=== PATIENT | female | born 1965 | race Caucasian/White ===

== ENCOUNTER → 2020-04-03 09:32 | Outpatient (BNVA) | payer OTHER, SELFPAY | PROVIDERS: Visit Provider Nurse Practitioner | DX: Z00.00 Encounter for general adult medical examination without abnormal findings (principal) | CPT/HCPCS: 80053; 80061; 84443; 85025 ==

== ENCOUNTER 2020-05-06 12:35 | Outpatient (CLI) | payer OTHER, SELFPAY ==
--- NOTE | 2020-05-06 13:00 | MM_ITS ---
WS: [id number] BILATERAL DIGITAL SCREENING MAMMOGRAPHY WITH CAD CLINICAL INFORMATION: breast screen HISTORY: Screening mammogram. No current complaints. COMPARISON: TECHNIQUE: Bilateral CC and MLO views. FINDINGS: Bilateral breast implants. The breasts are composed of heterogeneous fibroglandular density tissue, which can limit the detectio n of small underlying mass lesions. No suspicious mass, asymmetry, calcifications, or architectural d istortion. No evidence of malignancy. Vascular calcification MM/[place] [id number] IMPRESSION: BI-RADS: 2-Benign FOLLOW UP: 1 Year Follow-up Recommend return to annual screening mammography.
== END 2020-05-06 12:36 ==
PROVIDERS: PCP Nurse Practitioner; Visit Provider Nurse Practitioner
DX: L82.1 Other seborrheic keratosis (principal); L81.8 Other specified disorders of pigmentation; D18.01 Hemangioma of skin and subcutaneous tissue; S30.861A Insect bite (nonvenomous) of abdominal wall, initial encounter; W57.XXXA Bitten or stung by nonvenomous insect and other nonvenomous arthropods, initial encounter; X58.XXXA Exposure to other specified factors, initial encounter; F17.210 Nicotine dependence, cigarettes, uncomplicated; Z12.83 Encounter for screening for malignant neoplasm of skin
CPT/HCPCS: 77067; 99203; 99204

== ENCOUNTER → 2021-04-02 08:57 | Outpatient (BNVA) | payer OTHER, SELFPAY | PROVIDERS: PCP Nurse Practitioner; Visit Provider Nurse Practitioner | DX: Z00.00 Encounter for general adult medical examination without abnormal findings (principal); Z98.890 Other specified postprocedural states; Z86.010 Personal history of colon polyps; Z12.39 Encounter for other screening for malignant neoplasm of breast | CPT/HCPCS: 80053; 80061; 81000; 85025 ==

== ENCOUNTER 2021-05-14 09:00 | Outpatient (CLI) | payer OTHER, SELFPAY ==
--- NOTE | 2021-05-14 09:30 | MM_ITS ---
WS: [id number] BILATERAL DIGITAL SCREENING MAMMOGRAPHY WITH CAD CLINICAL INFORMATION: Z12.39 - Encounter for other screening for malignant neop... HISTORY: Screening mammogram. No current complaints. COMPARISON: May 06, 2020 TECHNIQUE: Bilateral CC and MLO views. FINDINGS: Bilateral breast implants appear Mammographically intact. The breasts are composed of heterogeneous fibroglandular density tissue, which can limit the detectio n of small underlying mass lesions. Clustered punctate calcifications outer left breast are stable. N o suspicious mass, asymmetry, calcifications, or architectural distortion. No evidence of malignancy. MM/[place] [id number] IMPRESSION: BI-RADS: 2-Benign FOLLOW UP: 1 Year Follow-up Recommend return to annual screening mammography.
== END 2021-05-14 09:01 | disposition home or self-care (01) ==
LOC: RADSHAW 09:03
PROVIDERS: PCP Nurse Practitioner; Visit Provider Nurse Practitioner
DX: Z12.31 Encounter for screening mammogram for malignant neoplasm of breast (principal)
CPT/HCPCS: 77067

== ENCOUNTER → 2022-08-16 14:29 | Outpatient (BNVA) | payer OTHER, SELFPAY | PROVIDERS: PCP Nurse Practitioner; Visit Provider Nurse Practitioner | DX: R05.9 Cough, unspecified (principal) | CPT/HCPCS: 71046; 80061 ==

== ENCOUNTER 2022-09-12 14:26 | Outpatient (CLI) | payer OTHER, SELFPAY ==
--- NOTE | 2022-09-12 14:38 | XR_ITS ---
WS: [id number] DEXA (DUAL ENERGY X-RAY ABSORPTIOMETRY) Bone mineral density was performed using a [employer] machine. HISTORY: Z78.0 - Asymptomatic menopausal state COMPARISON: None available. Lumbar spine BMD (L1-L4): 0.838 g/cm2 T score: -2.9 Z score: -1.6 Total hip BMD: Left: 0.832 g/cm2. T score: -1.4 Z score: -0.4 Right: 0.840 g/cm2. T score: -1.3 Z score: -0.3 10 year probability of a major osteoporotic fracture is 8.3%. XR/XR DEXA axial skeleton* [id number] IMPRESSION: OSTEOPOROSIS based upon the WHO classification for females.
--- NOTE | 2022-09-12 14:38 | MM_ITS ---
WS: [id number] BILATERAL 3D TOMOSYNTHESIS DIGITAL SCREENING MAMMOGRAPHY WITH CAD CLINICAL INFORMATION: Z12.39 - Encounter for other screening for malignant neop... HISTORY: Screening mammogram. No current complaints. COMPARISON: 2020 TECHNIQUE: Bilateral CC and MLO views. FINDINGS: Bilateral breast implants appear intact. The breasts are composed of heterogeneous fibroglandular density tissue, which can limit the detectio n of small underlying mass lesions. Stable clustered punctate calcifications outer LEFT breast. No kulkarni spicious mass, asymmetry, calcifications, or architectural distortion. No evidence of malignancy. MM/[place] [id number] IMPRESSION: BI-RADS: 2-Benign FOLLOW UP: 1 Year Follow-up Recommend return to annual screening mammography.
== END 2022-09-12 14:27 | disposition home or self-care (01) ==
LOC: RAD 14:29
PROVIDERS: PCP Nurse Practitioner; Visit Provider Nurse Practitioner
DX: Z12.31 Encounter for screening mammogram for malignant neoplasm of breast (principal); Z78.0 Asymptomatic menopausal state; M81.0 Age-related osteoporosis without current pathological fracture
CPT/HCPCS: 77063; 77067; 77080

== ENCOUNTER → 2023-04-20 10:09 | Outpatient (BNVA) | payer OTHER, SELFPAY | PROVIDERS: PCP Nurse Practitioner; Visit Provider Nurse Practitioner | DX: E55.9 Vitamin D deficiency, unspecified (principal) | CPT/HCPCS: 80053; 82306; 82607; 84443; 85025 ==

== ENCOUNTER → 2023-05-02 13:51 | Outpatient (BNVA) | payer OTHER, SELFPAY | PROVIDERS: PCP Nurse Practitioner; Visit Provider Dermatology | DX: D23.72 Other benign neoplasm of skin of left lower limb, including hip (principal) | CPT/HCPCS: 99213 ==

== ENCOUNTER 2023-09-15 09:26 | Outpatient (CLI) | payer OTHER, SELFPAY ==
--- NOTE | 2023-09-15 09:28 | MM_ITS ---
WS: [id number] BILATERAL SCREENING DIGITAL BREAST MAMMOGRAPHY WITH KASHIF DISPLACEMENT VIEWS. CAD PERFORMED. HISTORY: SCREENING COMPARISON: 09/12/2022 and 05/14/2021 Bilateral craniocaudal and mediolateral oblique views are performed with tomosynthesis and SM. Kashif displacement views in CC and MLO projection also performed. Breasts composition: The breasts are heterogeneously dense, which may obscure small masses. Implants are intact. No suspicious mass or calcification. IMPRESSION: MM/[place] [id number] BI-RADS: 2-Benign FOLLOW-UP: 1 Year Follow-up
== END 2023-09-15 09:27 | disposition home or self-care (01) ==
LOC: RAD 09:26
PROVIDERS: PCP Nurse Practitioner; Visit Provider Nurse Practitioner
DX: Z12.31 Encounter for screening mammogram for malignant neoplasm of breast (principal)
CPT/HCPCS: 77063; 77067

== ENCOUNTER → 2024-05-13 10:06 | Outpatient (BNVA) | payer BC, SELFPAY | PROVIDERS: PCP Nurse Practitioner; Visit Provider Nurse Practitioner | DX: M25.512 Pain in left shoulder (principal); J45.909 Unspecified asthma, uncomplicated; F41.8 Other specified anxiety disorders; M81.0 Age-related osteoporosis without current pathological fracture; J45.20 Mild intermittent asthma, uncomplicated; Z13.6 Encounter for screening for cardiovascular disorders | CPT/HCPCS: 73030 ==

== ENCOUNTER 2024-05-27 06:00 | Outpatient (RCR) | payer BC, SELFPAY | END 2024-06-08 23:59 | disposition home or self-care (01) | LOC: APT 06:00 | PROVIDERS: PCP Nurse Practitioner; Visit Provider Nurse Practitioner | DX: M25.512 Pain in left shoulder (principal) | CPT/HCPCS: 97110; 97140; 97161; 97530 ==

== ENCOUNTER → 2024-05-29 10:10 | Outpatient (BNVA) | payer BC, SELFPAY | PROVIDERS: PCP Nurse Practitioner; Visit Provider Nurse Practitioner | DX: Z13.6 Encounter for screening for cardiovascular disorders (principal) | CPT/HCPCS: 80053; 80061; 82607; 85025 ==

== ENCOUNTER 2024-06-09 06:00 | Outpatient (RCR) | payer BC, SELFPAY | END 2024-07-08 23:59 | disposition home or self-care (01) | LOC: APT 06:00 | PROVIDERS: PCP Nurse Practitioner; Visit Provider Nurse Practitioner | DX: M25.512 Pain in left shoulder (principal) | CPT/HCPCS: 97110; 97112; 97530 ==

== ENCOUNTER 2024-07-09 06:00 | Outpatient (RCR) | payer BC, SELFPAY | END 2024-08-08 23:59 | disposition home or self-care (01) | LOC: APT 06:00 | PROVIDERS: PCP Nurse Practitioner; Visit Provider Nurse Practitioner | DX: M25.512 Pain in left shoulder (principal) | CPT/HCPCS: 97110; 97112; 97140; 97530 ==

== ENCOUNTER 2024-09-20 09:33 | Outpatient (CLI) | payer BC, SELFPAY ==
--- NOTE | 2024-09-20 09:34 | MM_ITS ---
WS: [id number] BILATERAL SCREENING DIGITAL BREAST MAMMOGRAPHY WITH KASHIF DISPLACEMENT VIEWS. CAD PERFORMED. HISTORY: SCREENING COMPARISON: 09/15/2023, 09/12/2022 Bilateral craniocaudal and mediolateral oblique views are performed with tomosynthesis and SM. Kashif displacement views in CC and MLO projection also performed. Breasts composition: The breasts are heterogeneously dense, which may obscure small masses. Implants are prepectoral. Asymmetric increased density within the LEFT breast appears similar to 2020. No interval change or distortion. No suspicious grouping of calcifications. MM/MM scr tomosynthesis [id number] IMPRESSION: BI-RADS: 2 - Benign FOLLOW-UP: 1 Year Follow-up
== END 2024-09-20 09:34 | disposition home or self-care (01) ==
LOC: RAD 09:33
PROVIDERS: PCP Nurse Practitioner; Visit Provider Nurse Practitioner
DX: Z12.31 Encounter for screening mammogram for malignant neoplasm of breast (principal); R92.333 Mammographic heterogeneous density, bilateral breasts; Z98.82 Breast implant status; N64.89 Other specified disorders of breast
CPT/HCPCS: 77063; 77067

== ENCOUNTER → 2024-10-28 10:19 | Outpatient (BNVA) | payer BC, SELFPAY | PROVIDERS: PCP Nurse Practitioner; Visit Provider Nurse Practitioner | DX: E78.2 Mixed hyperlipidemia (principal); E55.9 Vitamin D deficiency, unspecified | CPT/HCPCS: 80053; 80061; 82306; 82607 ==

== ENCOUNTER 2025-01-08 09:07 | Emergency (ER) | payer BC, SELFPAY ==
[2025-01-08 09:19] VITALS: BP 149/88; PULSE 79; RESP 18; TEMP 36.5; O2SAT 100
--- NOTE | 2025-01-08 09:28 | XRR_ITS ---
PROCEDURE INFORMATION: Exam: XR Lumbosacral Spine Exam date and time: 01/08/2025 8:35 AM Age: 59 years old Clinical indication: Injury or trauma; Fall; Blunt trauma (contusions or hematomas); Additional info: Fall, low back pain TECHNIQUE: Imaging protocol: Radiologic exam of the lumbosacral spine. Views: 2 or 3 views. COMPARISON: CR XR chest 2V* [id number] 08/16/2022 2:30 PM FINDINGS: Bones/joints: There is normal anatomic alignment of the lumbosacral spine. There is a mild compression fracture deformity through the superior endplate of L1. The L1 compression fracture deformity was not present on the two-view chest from August 16, 2022. Mild chronic degenerative changes in the lower lumbar spine. Soft tissues: Unremarkable. XR/XR lumbar spine 2-3V* [id number] IMPRESSION: Mild compression fracture deformity through the superior endplate of L1.
--- NOTE | 2025-01-08 10:01 | CT_ITS ---
WS: [id number] CT ABDOMEN AND PELVIS WITH CONTRAST HISTORY: fall TECHNIQUE: Imaging performed of the abdomen and pelvis with IV contrast. Single phase imaging of the abdomen. Coronal and sagittal reformats are submitted. All CT scans at [facility] use at least one of these dose optimization techniques: automated exposure control; mA and/or kV adjustment per patient size (includes targeted exams where dose is matched to clinical indication); or iterative reconstruction. IV CONTRAST: Omnipaque 350; 100 mL IV. Oral contrast: No DLP: 387.76 mGy.cm COMPARISON: None available. Lower thorax: Lung bases are clear. Heart is normal size. No hiatal hernia. Liver/biliary system: Normal size with no intrahepatic dilatation. Gallbladder: Normal. No gallstones or wall thickening. No pericholecystic fluid. Pancreas: Normal size pancreas and pancreatic duct. No adjacent inflammation. Spleen: Normal size spleen. No mass or infarct. Adrenal glands: Normal. Right kidney: Normal. Left kidney: No obstruction. Lower pole cyst 2.8 x 2.5 cm. Aorta: Mild atherosclerosis with no aneurysm. Lymphadenopathy: None. Free fluid: None. GI tract: Nondistended stomach. No small bowel obstruction. Mild diffuse constipation. No colitis. Abdominal wall: Tiny fat-containing umbilical hernia. Pelvis: Urinary bladder is slightly overdistended. No free fluid in the pelvis. Prior hysterectomy. Bones: Acute L1 compression fracture by 10% with posterior retropulsion of the superior endplate by 3.[address] the fracture does not appear to extend into the posterior elements. Fracture does extend through the T12 spinous process towards the lamina. No definite laminar involvement. Fracture is best seen on the sagittal reformats. This fracture is difficult to see on the axial imaging. This is a subtle finding but the foramina bilaterally at T12-L1 are slightly greater in size as compared to the adjacent foramen above and below. Possibility for ligamentous injury especially on the RIGHT should be considered as there does appear to be slight subluxation of the RIGHT inferior articular facet with respect to the L1 superior articular facet. Nondisplaced fracture RIGHT L1 transverse process. No sacral fracture. No hip fracture. CT/CT abdomen pelvis w con* [id number] IMPRESSION: 1. No acute abdominal or pelvic abnormalities are identified. No visceral orga n injury. 2. Acute L1 compression fracture by 10% with posterior retropulsion of the sup erior endplate by 3.4 mm with mild encroachment upon the ventral thecal sac. 3. T12 spinous process fracture. 4. Nondisplaced RIGHT L1 transverse process fracture. 5. Although very subtle finding the T12-L1 foramina are slightly greater in si ze as compared to the foramina above and below this level. Very slight subluxat ion of the RIGHT T12-L1 articular facets. Recommend follow-up MRI lumbar spine to evaluate possible ligamentous injury. 6. Mildly distended bladder. With the fracture at L1 evaluate for possible cau da equina injury.
--- NOTE | 2025-01-08 10:01 | XR_ITS ---
WS: [id number] XR chest 1V portable [id number] REASON FOR EXAM: fall FINDINGS: Chest is relatively unchanged compared to 08/16/2022. Moderate tortuosity and ectasia of the thoracic aorta. Normal heart size. Calcified granulomatous disease bilaterally. No significant abnormality of the bony thorax. XR/XR chest 1V portable [id number] IMPRESSION: Stable chest without acute abnormality.
--- NOTE | 2025-01-08 10:11 | W.ED.FALL ---
HPI - Fall General: Chief Complaint: Fall Stated Complaint: fall, back pain Time Seen by Provider: 01/08/25 09:54 Source: patient Mode of arrival: ambulatory Limitations: no limitations History of Present Illness: 59-year-old female states she had tripped in her yard this morning states she fell backwards on the ground and hit her back states been having left flank pain back pain that wraps around her abdomen. States she has had some shooting pains in her left lower ribs as well she denies any hip pain denies hitting her head denies any neck pain Associated symptoms-after fall: Reports abdominal pain; Denies chest pain, headache(s) or neck pain Related Data Home Medications ?Medication ?Instructions ?Recorded ?Confirmed cholecalciferol (vitamin D3) 50 50 mcg PO DAILY 04/13/22 01/08/25 mcg (2,000 unit) capsule turmeric 400 mg capsule 400 mg PO DAILY 05/13/24 01/08/25 famotidine 20 mg tablet (Pepcid) 20 mg PO DAILY 10/28/24 01/08/25 bupropion HCl 150 mg tablet,12 hr 150 mg PO DAILY 01/08/25 01/08/25 sustained-release (Wellbutrin SR) Previous Rx's ?Medication ?Instructions ?Recorded epinephrine 0.3 mg/0.3 mL 0.3 mg (0.3 mL) IM Q4H PRN 04/20/23 injection, auto-injector (EpiPen) anaphylaxis #2 ea albuterol sulfate 90 mcg/actuation 2 puff inhalation QID PRN 10/28/24 aerosol inhaler shortness of breath or wheezing #8.5 grams ibandronate 150 mg tablet 150 mg PO .monthly #1 tab 10/28/24 levocetirizine 5 mg tablet 5 mg PO BID #60 tabs 10/28/24 montelukast 10 mg tablet 10 mg PO DAILY #30 tabs 10/28/24 rosuvastatin 20 mg tablet 20 mg PO DAILY #30 tabs 10/28/24 hydrocodone 5 mg-acetaminophen 325 1 tab PO Q6H PRN pain #20 tabs 01/08/25 mg tablet Allergies Allergy/AdvReac Type Severity Reaction Status Date / Time aspirin (From Percodan) Allergy Unknown Unknown Verified 10/28/24 09:36 oxycodone (From Percodan) Allergy Unknown Unknown Verified 10/28/24 09:36 Review of Systems Const: Denies: fever(s), chills, body aches or change in appetite Eyes: Denies: blurry vision or eye discomfort ENMT: Denies: throat pain or dental pain Card: Denies: chest pain Resp: Denies: dyspnea GI: Reports: abdominal pain; Denies: nausea, vomiting or diarrhea Musc: Reports: back pain; Denies: neck pain Skin/Breast: Denies: rash Neuro: Denies: headache(s) PFSH ED PFSH: Medical History Environmental and seasonal allergies Post-menopausal osteoporosis Situational anxiety Current smoker 1/2 ppd for 35 years use Surgical History History of colonoscopy with polypectomy 1999 with removal, 2002, 2005, 2014, 2022 at [facility] no polyp History of arthroscopic knee surgery Left History of tubal ligation History of hysterectomy Family History Father Cancer Colon cancer age 68 Sister Cancer Colon cancer age 36 Mother Diabetes Grandfather Stroke Other CAD (coronary artery disease) Dementia Hypertension Lung disease Denies family history of Bleeding disorder Social History Smoking and tobacco/nicotine status: current every day tobacco/nicotine user cigarettes Packs smoked per day: 0.5 Second hand smoke exposure: Yes Alcohol intake: current Alcohol intake frequency: holidays/special occasions only Substance/Drug Use: never Adopted: No Lives independently: Yes Household members: spouse Housing: House Marital status: Number of children: 0 service: No Current occupational status: retired Pets and animals: Yes Pets & animals: dog(s) Do you think of yourself as: Straight/Heterosexual Current gender identity: Female Physical Exam Const: COMMON NORMALS: no acute distress, patient oriented x3 and healthy appearing HENMT: COMMON NORMALS: normocephalic and atraumatic HEAD & SCALP: normocephalic and atraumatic Eye: COMMON NORMALS: conjunctivae normal CONJUNCTIVA: Yes conjunctivae normal Neck/C-Spine: COMMON NORMALS: full ROM and supple Chest: COMMONS NORMALS: normal inspection of the chest and normal palpation of entire chest wall Resp: COMMON NORMALS: normal respiratory effort, No retractions, No use of accessory muscles and clear to auscultation bilaterally AUSCULTATION: clear to auscultation bilaterally Cardio: COMMON NORMALS: regular rate, regular rhythm and No murmurs present (Cardio) RATE: regular rate RHYTHM: regular rhythm GI: COMMON NORMALS: Normal to inspection, nondistended, normoactive bowel sounds present, Soft to palpation and no masses PALPATION: Yes Soft to palpation OTHER: Tenderness noted to lower abdomen is mild : OTHER: Left flank tenderness Back/Pelvis: OTHER: Tenderness noted along lumbar spine Extremity: COMMON NORMALS: normal to inspection and full ROM Neuro: COMMON NORMALS: patient oriented x3, moves all extremities and no focal motor deficits Psych: COMMON NORMALS: mental status grossly normal, Normal thought process present and cooperative THOUGHT PROCESS: Normal thought process present Skin: COMMON NORMALS: no rashes or lesions noted and no wounds GENERAL SKIN EXAM: no rashes or lesions noted Course Vital Signs: Vital signs: Vital Signs Temperature 97.7 F 01/08/25 09:19 Pulse Rate 79 01/08/25 09:19 Respiratory Rate 18 01/08/25 09:19 Blood Pressure 149/88 01/08/25 09:19 Pulse Oximetry 100 01/08/25 09:19 Oxygen Delivery Me thod Room Air 01/08/25 09:19 MDM - Fall Medical Decision Making Patient presents here with lumbar compression fracture MRI showed no signs of cord injury her neuroexam here is benign I did speak to Dr. Beck will place TLSO brace will prescribe her pain meds have her follow-up with him she is return if worsening she understands agrees to plan. Medical Records I reviewed the patient's medical records. Lab Data I reviewed the patient's lab results. Radiology Impressions Lumbar Spine X-Ray 01/08/25 09:28 IMPRESSION: Mild compression fracture deformity through the superior endplate of L1. Abdomen/Pelvis CT 01/08/25 10:01 IMPRESSION: 1. No acute abdominal or pelvic abnormalities are identified. No visceral organ injury. 2. Acute L1 compression fracture by 10% with posterior retropulsion of the superior endplate by 3.4 mm with mild encroachment upon the ventral thecal sac. 3. T12 spinous process fracture. 4. Nondisplaced RIGHT L1 transverse process fracture. 5. Although very subtle finding the T12-L1 foramina are slightly greater in size as compared to the foramina above and below this level. Very slight subluxation of the RIGHT T12-L1 articular facets. Recommend follow-up MRI lumbar spine to evaluate possible ligamentous injury. 6. Mildly distended bladder. With the fracture at L1 evaluate for possible cauda equina injury. Chest X-Ray 01/08/25 10:01 IMPRESSION: Stable chest without acute abnormality. All radiology interpretation(s) finalized by discharge Discharge Plan Discharge Patient Disposition: Home Clinical Impression: Closed compression fracture of lumbar vertebra Qualifiers: Encounter type: initial encounter Lumbar vertebra fracture level: L1 Qualified Code(s): S32.010A - Wedge compression fracture of first lumbar vertebra, initial encounter for closed fracture Condition: Stable Prescriptions: New hydrocodone-acetaminophen 5-325 mg tablet 1 tab PO Q6H PRN (Reason: pain) Qty: 20 0RF No Action cholecalciferol (vitamin D3) 50 mcg (2,000 unit) capsule 50 mcg PO DAILY epinephrine [EpiPen] 0.3 mg/0.3 mL auto-injector 0.3 mg IM Q4H PRN (Reason: anaphylaxis) Qty: 2 2RF turmeric 400 mg capsule 400 mg PO DAILY famotidine [Pepcid] 20 mg tablet 20 mg PO DAILY albuterol sulfate 90 mcg/actuation HFA aerosol inhaler 2 puff inhalation QID PRN (Reason: shortness of breath or wheezing) Qty: 8.5 2RF ibandronate 150 mg tablet 150 mg PO .monthly Qty: 1 5RF levocetirizine 5 mg tablet 5 mg PO BID Qty: 60 5RF montelukast 10 mg tablet 10 mg PO DAILY Qty: 30 5RF rosuvastatin 20 mg tablet 20 mg PO DAILY Qty: 30 5RF bupropion HCl [Wellbutrin SR] 150 mg tablet sustained-release 12 hr 150 mg PO DAILY Discharge Orders: Discharge ED (Routine); Ordered 01/08/25 Ordered By: Gloria Curran Referrals: Olaf Ratliff DO [Physician] - 4-7 days Deniz Yin, ENGINE SETTER-C [Primary Care Provider] - Discharge Diet: Advance as tolerated Discharge Activity: Increase activity as tolerated Patient Instructions: Thoracolumbar Fracture (ED), Opioid Safety Print Language: Puerto [place]ican Coding Level of Care Code ED Sql Database Programmer for Rayne Paniagua
[2025-01-08] MEDS: ondansetron 2 mg/ML SDV 2 mL 4 MG IVP (10:45)
[2025-01-08] MEDS: morphine 4 mg/mL SDV 1 mL IVP (10:45)
[2025-01-08] MEDS: iohexol 350 mg/mL 500 mL Btl (per mL) IV (11:07)
[2025-01-08] MEDS: HYDROmorphone 0.5 MG/0.5 ML INJ IVP ×2 (11:24→12:23)
--- NOTE | 2025-01-08 12:01 | MR_ITS ---
WS: [id number] MRI LUMBAR SPINE NONCONTRAST TECHNIQUE: Sagittal T1, T2 and STIR imaging. Axial T1 and T2 imaging. CLINICAL INFORMATION: back injury COMPARISON: None. FINDINGS: Acute L1 compression fracture described on the thoracic spine MRI with diffuse edema and mild retropulsion. Mild central canal stenosis. Loss of approximately 10 to 20% vertebral body height. T12 nondisplaced spinous process fracture with edema. L1-L2: Normal. L2-L3: RIGHT foraminal protrusion impinges the exiting RIGHT L2 nerve root. Slight narrowing of the RIGHT subarticular recess. Mild facet arthropathy. L3-L4: Mild annular bulging. Slight effacement of the ventral thecal sac. LEFT foraminal protrusion with mild LEFT foraminal narrowing. L4-L5: Mild annular bulging. Slight effacement of the ventral thecal sac. Mild LEFT greater than RIGHT foraminal narrowing. L5-S1: Mild annular bulging. Slight effacement of the ventral thecal sac. RIGHT eccentric disc bulge with a tiny annular fissure. Mild RIGHT foraminal narrowing. Moderate facet arthropathy. Visualized pelvic bony structures: Normal. Paravertebral soft tissues: Normal. MR/MR lumbar spine wo con* [id number] IMPRESSION: 1. Acute L1 compression fracture described above with mild central canal steno sis 2. Acute nondisplaced T12 spinous process fracture. 3. RIGHT foraminal protrusion L2-3 impinges the exiting RIGHT L2 nerve root.
--- NOTE | 2025-01-08 12:01 | MR_ITS ---
WS: [id number] MRI THORACIC AND LUMBAR SPINE WITHOUT CONTRAST TECHNIQUE: Sagittal T1, T2 and STIR imaging. Axial T2 imaging. Noncontrast imaging obtained. CLINICAL INFORMATION: back pain COMPARISON: CT earlier today FINDINGS: Acute compression fracture L1 vertebral body with diffuse edema. Edema extends into the pedicles bilaterally. Fracture cleft in the superior endplate. Mild retropulsion of the posterior superior endplate with slight effacement of the ventral thecal sac. No high-grade central canal stenosis. Loss of approximately 10 to 20% vertebral body height. Additional nondisplaced fracture involving the T12 midline spinous process. Small amount of paravertebral edema at L1. Edema in the subcutaneous soft tissues overlying the T12 spinous process. Normal caliber thoracic aorta. Adrenal glands are normal. LEFT parapelvic renal cyst. RIGHT foraminal protrusion L2-3 slightly impinges the exiting RIGHT L2 nerve root. MR/MR thoracic spin wo con* [id number] IMPRESSION: 1. No evidence of cord contusion. Normal cord signal. 2. Acute compression fracture L1 superior endplate with mild retropulsion of t he posterior superior cortex with mild central canal stenosis. Loss of approxim ately 10 to 20% vertebral body height at L1. 3. Nondisplaced T12 midline spinous process fracture with edema. 4. No other acute findings.
[2025-01-08] MEDS: HYDROcodone-acetaminophen 10-325 mg Tablet 1 TAB PO (13:48)
[2025-01-08 14:22] VITALS: BP 140/70; PULSE 77; O2SAT 95
--- NOTE | 2025-01-09 09:02 | DCPLANNER ---
messaged ortho for er f/u
== END 2025-01-08 14:00 | disposition home or self-care (01) ==
PROVIDERS: Emergency Provider Emergency Medicine; PCP Nurse Practitioner
DX: S32.010A Wedge compression fracture of first lumbar vertebra, initial encounter for closed fracture (principal); F17.210 Nicotine dependence, cigarettes, uncomplicated; W01.0XXA Fall on same level from slipping, tripping and stumbling without subsequent striking against object, initial encounter
CPT/HCPCS: 71045; 72100; 72146; 72148; 74177; 96374; 96375; 96376; 97760; 99285; J1171; J2270; J2405; J9999; L0460

== ENCOUNTER → 2025-01-14 13:36 | Outpatient (BNVA) | payer BC, SELFPAY | PROVIDERS: PCP Nurse Practitioner; Visit Provider Orthopaedic Surgery | DX: S32.010A Wedge compression fracture of first lumbar vertebra, initial encounter for closed fracture (principal); X58.XXXA Exposure to other specified factors, initial encounter | CPT/HCPCS: 72100 ==

== ENCOUNTER → 2025-02-04 10:37 | Outpatient (BNVA) | payer BC, SELFPAY | PROVIDERS: PCP Nurse Practitioner; Visit Provider Orthopaedic Surgery | DX: S32.010A Wedge compression fracture of first lumbar vertebra, initial encounter for closed fracture (principal); X58.XXXA Exposure to other specified factors, initial encounter | CPT/HCPCS: 72100 ==

== ENCOUNTER → 2025-03-18 10:26 | Outpatient (BNVA) | payer BC, SELFPAY | PROVIDERS: PCP Nurse Practitioner; Visit Provider Orthopaedic Surgery | DX: S32.010A Wedge compression fracture of first lumbar vertebra, initial encounter for closed fracture (principal); M54.9 Dorsalgia, unspecified | CPT/HCPCS: 72100 ==

== ENCOUNTER → 2025-04-17 15:03 | Outpatient (BNVA) | payer BC, SELFPAY | PROVIDERS: PCP Nurse Practitioner; Visit Provider Orthopaedic Surgery | DX: M54.9 Dorsalgia, unspecified (principal); S34.111A Complete lesion of L1 level of lumbar spinal cord, initial encounter; X58.XXXA Exposure to other specified factors, initial encounter | CPT/HCPCS: 72100 ==

== ENCOUNTER 2025-04-21 09:09 | Outpatient (CLI) | payer BC, SELFPAY ==
--- NOTE | 2025-04-21 09:30 | MR_ITS ---
WS: [id number] MRI LUMBAR SPINE NONCONTRAST HISTORY: back pain, follow-up compression fracture L1. COMPARISON: 01/08/2025, lumbar spine 04/17/2025 TECHNIQUE: Sagittal and axial multisequence imaging is submitted. Straightening of the normal cervical lordosis. Small osteophytes at C5 and C6. Posterior alignment of the lumbar vertebral bodies is normal with exception of L1. L1 20% compression fracture. Minimal progression in loss of height since 01/08/2025. 4.6 mm retropulsion of the posterior superior endplate similar to the prior study. There is continued marrow edema throughout nearly the entire L1 vertebral body with extension into the RIGHT pedicle. Reidentified is marrow edema in the T12 spinous process from a fracture. Disc spaces and vertebral body heights are well-preserved. Conus terminates normally at L1. L1-L2: Retropulsion of the posterior superior endplate of L1 with mild encroachment upon the ventral thecal sac mild central stenosis. L2-L3: Shallow RIGHT foraminal disc protrusion encroaches upon the exiting RIGHT L2 nerve root. Mild subarticular recess narrowing and facet arthritis. L3-L4: Mild annular disc bulging. Shallow LEFT foraminal disc protrusion with annular fissure. Mild central, subarticular recess and foraminal stenosis. L4-L5: Mild annular disc bulging with facet disease. Mild bilateral foraminal stenosis, LEFT greater than RIGHT. L5-S1: Mild annular disc bulging. Mild facet arthritis. Minimal foraminal stenosis. Previously described RIGHT annular fissure is less apparent today. LEFT renal cyst. MR/MR lumbar spine wo con* [id number] IMPRESSION: 1. L1 20% compression fracture with minimal progression since 01/08/2025. 2. Mild central stenosis at L1 due to retropulsion by 4.6 mm. 3. Nondisplaced T12 acute spinous process fracture. 4. RIGHT foraminal disc protrusion with mild encroachment upon the exiting RIG HT L2 nerve root. 5. Mild central, subarticular recess and foraminal stenosis at L3-4. 6. Minimal foraminal stenosis at L4-5 and L5-S1.
== END 2025-04-21 09:10 | disposition home or self-care (01) ==
LOC: RAD 09:12
PROVIDERS: PCP Nurse Practitioner; Visit Provider Orthopaedic Surgery
DX: S34.111A Complete lesion of L1 level of lumbar spinal cord, initial encounter (principal); M48.061 Spinal stenosis, lumbar region without neurogenic claudication; M51.26 Other intervertebral disc displacement, lumbar region; X58.XXXA Exposure to other specified factors, initial encounter
CPT/HCPCS: 72148

== ENCOUNTER → 2025-04-22 10:14 | Outpatient (BNVA) | payer BC, SELFPAY | PROVIDERS: PCP Nurse Practitioner; Visit Provider Orthopaedic Surgery | DX: Z01.818 Encounter for other preprocedural examination (principal) | CPT/HCPCS: 36415; 80053; 81001; 85025 ==

== ENCOUNTER 2025-04-25 10:23 | Day surgery (SDC) | payer BC, SELFPAY ==
[2025-04-25] VITALS (10 sets, daily range): BP systolic 102–131; BP diastolic 52–94; PULSE 67–86; RESP 13–20; TEMP 36.1–36.7; O2SAT 92–100; BMI 22.3
--- NOTE | 2025-04-25 09:51 | XR_ITS ---
WS: [id number] C-ARM RADIOGRAPHS SPINE; 4 IMAGES HISTORY: SURGERY COMPARISON: None available. Intraoperative imaging during vertebroplasty. There is a single vertebral body that appears to be near the thoracolumbar junction containing methylmethacrylate. XR/XR lumbar spine 2-3V* [id number] IMPRESSION: Intraoperative imaging during vertebroplasty of a single vertebral body.
--- NOTE | 2025-04-25 11:54 | ANES.PREANE2 ---
Pre-Anesthetic Assessment Height/Weight: Height 1.63 m Weight 58.967 kg Temp Pulse Resp BP Pulse Ox O2 Del Method 98.0 F 67 16 131/78 100 Room Air 04/25/25 10:31 04/25/25 10:31 04/25/25 10:31 04/25/25 10:31 04/25/25 10:31 04/25/25 10:31 Preop Diagnosis: L1 wedge osteoporotic traumatic compression fracture Operation Date: 04/25/25 12:40 Proposed Procedures p Kyphoplasty(Not Applicable) - Olaf Ratliff DO Familial anesthetic complications: None Was Beta Raudel taken within 24 hours: N/A Was Clonidine taken within 24 hours: N/A Last intake: Intake Last Liquid Date 04/24/25 Last Liquid Time 23:00 Last Solid Date 04/24/25 Last Solid Time 19:00 Social Tobacco and No alcohol Exam alert, oriented x 3, clear to auscultation bilaterally and regular rate & rhythm Airway Mallampati: Class I Dentition: full Metabolic Hyperlipidemia Anesthetic Plan ASA status: 2 Anesthesia: General Risk of > 500 ml blood loss (7ml/kg in children): No Medications/Allergies Home Medications ?Medication ?Instructions ?Recorded ?Confirmed ?Last Taken ?Type cholecalciferol (vitamin D3) 50 50 mcg PO DAILY 04/13/22 04/25/25 04/24/25 History mcg (2,000 unit) capsule epinephrine 0.3 mg/0.3 mL 0.3 mg (0.3 mL) IM Q4H PRN 04/20/23 04/25/25 Unknown Rx injection, auto-injector (EpiPen) anaphylaxis #2 ea turmeric 400 mg capsule 400 mg PO DAILY 05/13/24 04/25/25 04/21/25 History albuterol sulfate 90 mcg/actuation 2 puff inhalation QID PRN 10/28/24 04/25/25 Unknown Rx aerosol inhaler shortness of breath or wheezing #8.5 grams famotidine 20 mg tablet (Pepcid) 20 mg PO DAILY 10/28/24 04/25/25 04/24/25 History levocetirizine 5 mg tablet 5 mg PO BID #60 tabs 10/28/24 04/25/25 04/24/25 Rx montelukast 10 mg tablet 10 mg PO DAILY #30 tabs 10/28/24 04/25/25 04/24/25 Rx rosuvastatin 20 mg tablet 20 mg PO DAILY #30 tabs 10/28/24 04/25/25 04/24/25 Rx bupropion HCl 150 mg tablet,12 hr 150 mg PO DAILY 01/08/25 04/25/25 04/24/25 History sustained-release (Wellbutrin SR) hydrocodone 5 mg-acetaminophen 325 1 tab PO Q6H pain 7 days #28 tabs 02/04/25 04/25/25 04/25/25 Rx mg tablet TLSO brace #1 ea 02/24/25 04/22/25 Unknown Rx ibandronate 150 mg tablet 150 mg PO .monthly #1 tab 03/21/25 04/25/25 04/22/25 Rx Allergies Allergy/AdvReac Type Severity Reaction Status Date / Time aspirin (From Percodan) Allergy Intermediate Unknown Verified 04/25/25 10:36 oxycodone (From Percodan) Allergy Intermediate ADR-Halluci Verified 04/25/25 10:36 nating Current Medications Generic Name Dose Route Start Last Admin Trade Name Freq PRN Reason Stop Dose Admin Sodium Chloride 1,000 mls @ 30 mls/hr 04/25/25 10:45 04/25/25 11:08 Sodium Chloride 0.9% IV 04/26/25 10:44 30 mls/hr .Q24H FLORENCIO Administration PFSH Anesthesia Medical History Environmental and seasonal allergies Post-menopausal osteoporosis Situational anxiety Current smoker 1/2 ppd for 35 years use Surgical History History of colonoscopy with polypectomy 1999 with removal, 2002, 2005, 2014, 2022 at [facility] no polyp History of arthroscopic knee surgery Left History of tubal ligation History of hysterectomy Family History Father Cancer Colon cancer age 68 Sister Cancer Colon cancer age 36 Mother Diabetes Grandfather Stroke Other CAD (coronary artery disease) Dementia Hypertension Lung disease Denies family history of Bleeding disorder Social History Smoking and tobacco/nicotine status: current every day tobacco/nicotine user cigarettes Packs smoked per day: 0.5 Second hand smoke exposure: Yes Alcohol intake: current Alcohol intake frequency: holidays/special occasions only Substance/Drug Use: never Adopted: No Lives independently: Yes Household members: spouse Housing: House Marital status: Number of children: 0 service: No Current occupational status: retired Pets and animals: Yes Pets & animals: dog(s) Do you think of yourself as: Straight/Heterosexual Current gender identity: Female
--- NOTE | 2025-04-25 11:58 | W.PM.OPSUD ---
Surgery/Procedure H&P Update DATE OF PROCEDURE: April 25, 2025 DATE H&P PERFORMED: 04/22/25 H&P UPDATE INFORMATION: I have reviewed H&P completed within last 30 days, I have examined patient prior to procedure and No changes to prior documentation PREOP DIAGNOSIS: L1 wedge osteoporotic traumatic compression fracture PLANNED PROCEDURE: Operation Date: 04/25/25 12:40 Proposed Procedures p Kyphoplasty(Not Applicable) - Olaf Ratliff DO
[2025-04-25] MEDS: ceFAZolin 2,000 mg SDV 2000 MG IVP (12:13)
[2025-04-25] MEDS: lidocaine-epi 1% 20 mL INJ INJECTION (12:43)
[2025-04-25] MEDS: iohexol 300 mg/mL 50 mL Btl XX (12:45)
--- NOTE | 2025-04-25 13:06 | PM.OP ---
Operative Report Date of procedure: April 25, 2025 Pre-op diagnosis: L1 osteoporotic wedge traumatic compression fracture Post-op diagnosis: same Procedure done: L1 kyphoplasty Surgeon: Olaf Ratliff DO Estimated blood loss (mL): 5 Procedure: L1 kyphoplasty Patient is brought to the operative suite after undergoing anesthesia she was placed in the prone position. All areas of impingement were well-padded. Patient's prepped and draped in sterile fashion. Skin incision was made on the outside edge of each of the pedicles. Awl was inserted followed by the drill this was repeated on both the right and left. The balloon was then inserted and inflated. And then deflated. Next the cement was placed. Stent was placed into the vertebrae this was locked under C-arm guidance. Once the blood was confirmed to be completely filled to measure. AP and lateral fluoroscopy showed the cement was in good position. There is cement leaked into the space other than that there was no breaches. Wounds irrigated nylon stitches placed sterile dressings were applied patient is transferred to the PACU in stable condition.
== END 2025-04-25 14:20 | disposition home or self-care (01) ==
PROVIDERS: PCP Nurse Practitioner; Visit Provider Orthopaedic Surgery
PROC: (CPT 22514; principal; 2025-04-25 12:20)
DX: S32.010A Wedge compression fracture of first lumbar vertebra, initial encounter for closed fracture (principal); X58.XXXA Exposure to other specified factors, initial encounter; E78.5 Hyperlipidemia, unspecified; F41.8 Other specified anxiety disorders; F17.210 Nicotine dependence, cigarettes, uncomplicated
CPT/HCPCS: 22514; 72100; 76000; J0690; J1100; J2250; J2371; J2405; J2704; J3010; J7030; J9999

== ENCOUNTER → 2025-05-06 11:42 | Outpatient (BNVA) | payer BC, SELFPAY | PROVIDERS: PCP Nurse Practitioner; Visit Provider Nurse Practitioner | DX: E55.9 Vitamin D deficiency, unspecified (principal); E78.2 Mixed hyperlipidemia | CPT/HCPCS: 80053; 80061; 82306; 82607 ==

== ENCOUNTER → 2025-06-12 11:02 | Outpatient (BNVA) | payer BC, SELFPAY | PROVIDERS: PCP Nurse Practitioner; Visit Provider Orthopaedic Surgery | DX: Z98.890 Other specified postprocedural states (principal) | CPT/HCPCS: 72072 ==

== ENCOUNTER 2025-09-22 08:59 | Outpatient (CLI) | payer SELFPAY ==
--- NOTE | 2025-09-22 09:08 | CT_ITS ---
WS: [id number] CT CALCIUM SCORE REASON FOR VISIT: ESSENTIAL HYPERTENSION/SMOKER; Coronary artery disease risk assessment COMPARISON: None TECHNIQUE: Noncontrast coronary CT in combination with quantitative analysis performed on a separate workstation were used to determine CACS (Agatston score) TOTAL EXAM DOSE: 39.06 mGy.cm ECG GATING: Prospective SCAN RANGE: Pulmonary artery bifurcation to Inferior aspect of heart COMPLICATIONS: None FINDINGS: Technical Quality/Examination Quality: Good Limitaiton: None OVERALL SCORES Total calcium score: 199 Total volume score: 207 mm3 Percentile: Between the 90th and 100 percentile for females between the ages of 60 and 64 ARTERY SCORES Left main coronary artery: 0 Left anterior descending artery: 4 Left circumflex artery: 1 Right coronary artery: 194 OTHER FINDINGS: Mediastinum: Normal. Thoracic aorta: Normal. Lungs: Normal. Upper Abdomen: Normal. MINIMAL: 1-10 MILD: 11-100 MODERATE: 101-400 SEVERE:>400 CT/CT heart w calcium score 48407 IMPRESSION: Total calcium score 199 between the 90th and 100th percentile for f emales between the ages of 60 and 64 GRADING OF CORONARY ARTERY DISEASE (BASED ON TOTAL CALCIUM SCORE) NO EVIDENCE OF CAD: 0 calcium score
--- NOTE | 2025-09-22 09:08 | MM_ITS ---
WS: [id number] BILATERAL SCREENING DIGITAL BREAST MAMMOGRAPHY WITH KASHIF DISPLACEMENT VIEWS. CAD PERFORMED. HISTORY: SCREENING COMPARISON: 09/20/2024, 09/15/2023, 05/14/2021 Bilateral craniocaudal and mediolateral oblique views are performed with tomosynthesis and SM. Kashif displacement views in CC and MLO projection also performed. Breasts composition: The breasts are heterogeneously dense, which may obscure small masses. No suspicious masses or calcifications. Retropectoral implants are intact. Small benign scattered calcifications. MM/MM [facility] tomosynthesis [id number] IMPRESSION: BI-RADS: 2 - Benign FOLLOW-UP: 1 Year Follow-up
== END 2025-09-22 09:00 | disposition home or self-care (01) ==
LOC: RAD 09:00
PROVIDERS: PCP Nurse Practitioner; Visit Provider Nurse Practitioner
DX: Z12.31 Encounter for screening mammogram for malignant neoplasm of breast (principal); I10 Essential (primary) hypertension; Z72.0 Tobacco use; R92.333 Mammographic heterogeneous density, bilateral breasts; R92.1 Mammographic calcification found on diagnostic imaging of breast; Z98.82 Breast implant status; R93.1 Abnormal findings on diagnostic imaging of heart and coronary circulation
CPT/HCPCS: 75571; 77063; 77067